=== PATIENT | male | born 1950 | race Caucasian/White ===

== ENCOUNTER 2020-06-13 14:46 | Outpatient (CLI) | payer MEDICARE, SELFPAY ==
--- NOTE | ~2020-06-13 | US_ITS ---
EXAMINATION: US venous doppler LE RT DATE: 06/13/2020 15:12 INDICATION: Acute deep vein thrombosis of proximal vein of right lower limb. TECHNIQUE: Grayscale ultrasound images without and with compression and Doppler ultrasound images of the right lower extremity veins were obtained. COMPARISON: None. FINDINGS: The visualized portions of right common femoral vein, profunda (deep) femoral vein, femoral vein, pop liteal vein, peroneal veins, posterior tibial veins, and greater saphenous vein outflow are patent. IMPRESSION: 1. No deep venous thrombosis. Reviewed, dictated and finalized at location A. [facility]
== END 2020-06-13 14:47 | disposition home or self-care (01) ==
PROVIDERS: PCP Internal Medicine; Visit Provider Internal Medicine Hematology & Oncology
DX: I82.4Y1 Acute embolism and thrombosis of unspecified deep veins of right proximal lower extremity (principal)
CPT/HCPCS: 93971

== ENCOUNTER 2020-06-18 13:32 | Outpatient (CLI) | payer MEDICARE, SELFPAY ==
[2020-06-20 21:04] LABS: Antithrombin III Activity 91 % normal (80-135)
[2020-06-21 12:16] LABS: Homocysteine 22.8 umol/L (<11.4)
[2020-06-21 20:14] LABS: Lupus dRVVT 1:1 Mix Interpreta Not Indicated; Lupus dRVVT Screen 44 sec (<=45); PTT-LA Screen 31 sec (<=40)
== END 2020-06-18 13:33 | disposition home or self-care (01) ==
LOC: ANHLAB 13:34
PROVIDERS: PCP Internal Medicine; Visit Provider Internal Medicine Hematology & Oncology
DX: I82.4Y1 Acute embolism and thrombosis of unspecified deep veins of right proximal lower extremity (principal)
CPT/HCPCS: 36415; 81240; 81241; 83090; 85300; 85303; 85306; 85613; 85730; 86146

== ENCOUNTER 2020-11-11 09:41 | Outpatient (CLI) | payer MEDICARE, SELFPAY ==
[2020-11-14 21:32] LABS: Homocysteine 18.4 umol/L (<11.4)
== END 2020-11-11 09:42 | disposition home or self-care (01) ==
PROVIDERS: PCP Internal Medicine; Visit Provider Internal Medicine Hematology & Oncology
DX: I82.4Y1 Acute embolism and thrombosis of unspecified deep veins of right proximal lower extremity (principal)
CPT/HCPCS: 36415; 83090

== ENCOUNTER 2021-02-17 09:59 | Outpatient (CLI) | payer MEDICARE, SELFPAY ==
[2021-02-19 20:29] LABS: Homocysteine 19.5 umol/L (<11.4)
== END 2021-02-17 10:00 | disposition home or self-care (01) ==
LOC: ANHLAB 10:01
PROVIDERS: PCP Internal Medicine; Visit Provider Internal Medicine Hematology & Oncology
DX: I82.4Y1 Acute embolism and thrombosis of unspecified deep veins of right proximal lower extremity (principal)
CPT/HCPCS: 36415; 83090

== ENCOUNTER 2021-06-09 08:32 | Outpatient (CLI) | payer MEDICARE, SELFPAY ==
[2021-06-11 14:57] LABS: Homocysteine 14.4 umol/L (<11.4)
== END 2021-06-09 08:33 | disposition home or self-care (01) ==
LOC: ANHLAB 08:33
PROVIDERS: PCP Internal Medicine; Visit Provider Internal Medicine Hematology & Oncology
DX: I82.4Y1 Acute embolism and thrombosis of unspecified deep veins of right proximal lower extremity (principal)
CPT/HCPCS: 36415; 83090

== ENCOUNTER 2021-12-08 08:54 | Outpatient (CLI) | payer MEDICARE, SELFPAY ==
[2021-12-11 21:34] LABS: Homocysteine 13.9 umol/L (<11.4)
== END 2021-12-08 08:55 | disposition home or self-care (01) ==
LOC: ANHLAB 08:56
PROVIDERS: PCP Internal Medicine; Visit Provider Internal Medicine Hematology & Oncology
DX: I82.4Y1 Acute embolism and thrombosis of unspecified deep veins of right proximal lower extremity (principal)
CPT/HCPCS: 36415; 83090

== ENCOUNTER 2022-06-22 09:25 | Outpatient (CLI) | payer MEDICARE, SELFPAY ==
[2022-06-25 15:39] LABS: Homocysteine 13.8 umol/L (<11.4)
== END 2022-06-22 09:26 | disposition home or self-care (01) ==
LOC: ANHLAB 09:27
PROVIDERS: PCP Internal Medicine; Visit Provider Internal Medicine Hematology & Oncology
DX: I82.4Y1 Acute embolism and thrombosis of unspecified deep veins of right proximal lower extremity (principal)
CPT/HCPCS: 36415; 83090

== ENCOUNTER 2022-12-21 08:46 | Outpatient (CLI) | payer MEDICARE, SELFPAY ==
[2022-12-21 09:53] LABS: Basophils Percent Auto 0.6 % (0.2-1.2); Eosinophils Absolute Auto 0.1 K/mm3 (0-0.3); Eosinophils Percent Auto 2.1 % (0-4.4); Hematocrit 47.3 % (42.0-52.0); Hemoglobin 15.6 g/dL (14.0-18.0); Immature Granulocyte Absolute 0.01 K/mm3 (0.00-0.031); Immature Granulocyte Percent A 0.2 % (0-0.5); Lymphocytes Absolute Auto 1.97 K/mm3 (0.9-3.2); Lymphocytes Percent Auto 29.7 % (18.3-44.2); Mean Platelet Volume 11.3 fl (7.4-10.4); Monocytes Absolute Auto 0.6 K/mm3 (0.1-0.6); Monocytes Percent Auto 9.2 % (2.6-8.5); Neutrophils Absolute Auto 3.9 K/mm3 (1.3-6.7); Neutrophils Percent Auto 58.2 % (45.5-73.1); Platelet Count Result 178 k/mm3 (150-375); Red Blood Count 4.73 M/mm3 (4.6-6.20); Red Cell Distribution Width 13.1 % (11.5-14.5); White Blood Count 6.6 K/mm3 (4.5-10.0)
[2022-12-25 05:35] LABS: Homocysteine 17.6 umol/L (<11.4)
== END 2022-12-21 08:47 | disposition home or self-care (01) ==
LOC: ANHLAB 08:48
PROVIDERS: PCP Internal Medicine; Visit Provider Internal Medicine Hematology & Oncology
DX: I82.4Y1 Acute embolism and thrombosis of unspecified deep veins of right proximal lower extremity (principal)
CPT/HCPCS: 36415; 83090; 85025

== ENCOUNTER 2023-12-27 09:41 | Outpatient (CLI) | payer MEDICARE, SELFPAY ==
[2023-12-27 09:56] LABS: Basophils Absolute Auto 0.1 K/mm3 (0.0-0.1); Eosinophils Absolute Auto 0.2 K/mm3 (0-0.3); Eosinophils Percent Auto 3.3 % (0-4.4); Hematocrit 45.7 % (42.0-52.0); Immature Granulocyte Absolute 0.02 K/mm3 (0.00-0.031); Immature Granulocyte Percent A 0.4 % (0-0.5); Lymphocytes Absolute Auto 1.73 K/mm3 (0.9-3.2); Lymphocytes Percent Auto 35.2 % (18.3-44.2); Mean Corpuscular HGB Conc 32.8 g/dl (32-36); Mean Corpuscular Hemoglobin 33.1 pg (26-34); Mean Corpuscular Volume 100.9 fl (80-100); Mean Platelet Volume 11.6 fl (7.4-10.4); Monocytes Absolute Auto 0.5 K/mm3 (0.1-0.6); Neutrophils Absolute Auto 2.4 K/mm3 (1.3-6.7); Neutrophils Percent Auto 49.1 % (45.5-73.1); Platelet Count Result 166 k/mm3 (150-375); Red Blood Count 4.53 M/mm3 (4.6-6.20); Red Cell Distribution Width 12.7 % (11.5-14.5); White Blood Count 4.9 K/mm3 (4.5-10.0)
[2023-12-27 10:37] LABS: Alanine Aminotransferase 26 U/L (6-50); Albumin Level 4.5 g/dL (3.5-5.1); Alkaline Phosphatase 70 U/L (38-126); Anion Gap 8 mmol/L (4-12); Aspartate Amino Transferase 31 U/L (17-59); Bilirubin,Total 0.5 mg/dL (0.2-1.3); Blood Urea Nitrogen 15 mg/dL (9-20); Calcium 9.1 mg/dL (8.4-10.2); Carbon Dioxide 30 mmol/L (22-30); Chloride 100 mmol/L (98-107); Estimated Glomerular Filt Rate > 60; Glucose 100 mg/dL (65-110); Potassium 4.7 mmol/L (3.4-5.0); Sodium 138 mmol/L (137-145)
[2023-12-29 12:38] LABS: Homocysteine 16.9 umol/L (<11.4)
== END 2023-12-27 09:42 | disposition home or self-care (01) ==
LOC: ANHLAB 09:43
PROVIDERS: PCP Internal Medicine; Visit Provider Internal Medicine Hematology & Oncology
DX: I82.4Y1 Acute embolism and thrombosis of unspecified deep veins of right proximal lower extremity (principal)
CPT/HCPCS: 36415; 80053; 83090; 85025

== ENCOUNTER 2024-12-25 09:24 | Outpatient (CLI) | payer MEDICARE, SELFPAY ==
--- OUTSIDE RECORDS SUMMARY | 2009-08-30 05:00 | XMS_ITS | Continuity of Care Document ---
Author Organization [facility] Address [address] [place] [address] Phone Care Team Providers Care Pharmacy Student Name Role Phone Pimentel OD, Darius Unavailable Unavailable Procedures Procedure Date Eye Exam, New Patient Refraction Advance Directives Directive Yes / No Effective Date File Name No Information Encounters Encounter Description Practice Location Reason(s) For Visit Diagnoses Date Provider Providers Copied on Encounter [facility], [address], [place], [place], [id number], [place] tel:[phone] [facility] No Information 2-201 0 Pimentel OD Darius. [address] , [address], [place], [address], [place]. tel:[phone] Family History Family Member Type Diagnosis Age At Onset No Information Payers Payer name Insurance type Covered democrat ID Authoriza timyriam(s) [employer] Plan CI [id number] Social History Type Description Quantity Date Captured Comments Sex Male Smoking Status No Information Chief Complaint And Reason For Visit No Information Reason For Referral Reason For Referral No Information History Of Present Illness Encounter Date Complaint History Of Prese nt Illness No Information Functional Status Date Functional Assessmen t No Information Instructions Date Instruction Additional Infor mation No Information Assessments Type Assessment Date No Information Patient Care Teams Name Effective Dates (start - stop) Status Members No Information
--- OUTSIDE RECORDS SUMMARY | 2024-10-23 19:00 | XMS_ITS | Continuity of Care Document ---
Author Organization [facility] Address [address] [place] [phone] Phone Care Team Providers Care Laundrette Owner Name Role Phone Jessie QUEEN, FACC, David Unavailable Unavail able Procedures Procedure Date EXTRACRANIAL STUDY Advance Directives Directive Yes / No Effective Date File Name No Information Encounters Encounter Description Practice Location Reason(s) For Visit Diagnoses Date Provider Providers Copied on Encounter [facility], [address] [place] [address], [id number], tel:[phone] [facility] No Information Jessie Heranndez. [address] [place] [address], [id number], . tel:[phone] Referring Provider: David Jay, [address] [place] [address], [id number]. tel:[phone] Family History Family Member Type Diagnosis Age At Onset No Information Payers Payer name Insurance type Covered republican ID Authoriza tion(s) [employer] MEDICARE [place] PPO MB [id number] Social History Type Description Quantity Date Captured [...]
[2024-12-25 09:36] LABS: Hematocrit 46.9 % (42.0-52.0); Hemoglobin 15.3 g/dL (14.0-18.0); Immature Granulocyte Percent A 0.4 % (0-0.5); Lymphocytes Absolute Auto 1.93 K/mm3 (0.9-3.2); Mean Corpuscular HGB Conc 32.6 g/dl (32-36); Mean Corpuscular Hemoglobin 33.0 pg (26-34); Mean Corpuscular Volume 101.1 fl (80-100); Nucleated Red Blood Cells Absolute Auto 0.000 K/mm3 (0.0-0.012); Nucleated Red Blood Cells Perc 0.0 % (0.0-0.2); Platelet Count Result 174 k/mm3 (150-375); Red Blood Count 4.64 M/mm3 (4.6-6.20); White Blood Count 5.3 K/mm3 (4.5-10.0)
[2024-12-25 10:14] LABS: Alanine Aminotransferase 25 U/L (6-50); Albumin Level 4.3 g/dL (3.5-5.1); Alkaline Phosphatase 78 U/L (38-126); Anion Gap 8 mmol/L (4-12); Aspartate Amino Transferase 41 U/L (17-59); Bilirubin,Total 0.8 mg/dL (0.2-1.3); Blood Urea Nitrogen 18 mg/dL (9-20); Calcium 8.8 mg/dL (8.4-10.2); Carbon Dioxide 28 mmol/L (22-30); Chloride 103 mmol/L (98-107); Estimated Glomerular Filt Rate > 60; Glucose 100 mg/dL (65-110); Potassium 4.5 mmol/L (3.4-5.0); Sodium 139 mmol/L (137-145); Total Protein 7.7 g/dL (6.3-8.2)
--- OUTSIDE RECORDS SUMMARY | 2024-12-25 10:43 | XMS_ITS | Clinical Summary ---
Author Organization [facility] Address [address] [place] [address] Care Team Providers Care Spray Gun Striper Name Role Phone Remy Denny MD Primary Care Provider [phone] Allergies Active Allergy Reactions Criticality Noted Date Comments Ajay Inhibitors Other (See Comments) 02/25/2021 Arb-Angiotensin Receptor Antagonist Other (See Comments) 02/25/2021 Medications sildenafiL (VIAGRA) 100 mg tablet TAKE 1 TABLET BY MOUTH AN HOUR BEFORE SEXUAL ENCOUNTER 1 Active quinapriL (ACCUPRIL) 10 mg tablet TAKE 1 TABLET BY MOUTH EVERY DAY 1 Active FOLIC ACID ORAL Take by mouth. Active Eliquis 5 mg tablet Take 1 Tablet (5 mg) by mouth 2 times daily. 60 Tablet 5 2 Active lisinopriL (PRINIVIL) 10 mg tablet Take 10 mg by mouth daily. Active Active Problems Problem Noted Date Diagnosed Date Acute deep vein thrombosis ( DVT) of proximal vein of right lower extremity 06/11/2020 Encounters Date Type Department Care Team Description 12/11/2024 External Device Data STL ABSTRACTION Provider, Abstract from Last 3 Months Family History Relation Name Status Comments Brother Alive Daughter Alive Father Mother Sister Alive Son Alive Social History Tobacco Use Types Packs/Day Years Used Date Smoking Tobacco: Former Cigarettes 1 20 0 01/02/1954 - 01/02/1974 Smokeless Tobacco: Never Tobacco Cessation:Counseling Given: Not Answered Comments:quit over 45 yrs ago Alcohol Use Standard Drinks/Week Comments Yes 0 (1 standard drink = 0.6 oz pur e alcohol) mostly beer but sometimes wine Feeling Safe Answer Date Recorded Within the last year, have y ou been afraid of your partner or ex-partner? No 06/11/2020 Within the last year, have y ou been humiliated or emotionally abused in other ways by your partner or ex-partner? No Within the last year, have y ou been kicked, hit, slapped, or otherwise physically hurt by your partner or ex-partner? No 06/11/2020 Within the last year, have y ou been raped or forced to have any kind of sexual activity by your partner or ex-partner? No 06/11/2020 Social Connections Answer Date Recorded In a typical week, how many times do you talk on the phone with family, friends, or neighbors? More than three times a week 06/11/2020 How often do you get togethe r with friends or relatives? More than three times a week 06/11/2020 Attends [employer] Not on file 06/11 Do you belong to any clubs o r organizations such as yarsanism groups, unions, fraternal or athletic groups, or school groups? Yes 06/11/2020 How often do you attend meet ings of the clubs or organizations you belong to? More than 4 times per year 06/11/2020 Marital Status Not on file 06/11/2020 Financial Resource Strain Answer Date R ecorded How hard is it for you to pa y for the very basics like food, housing, medical care, and heating? Not hard at all 06/11/2020 Food Insecurity Answer Date Recorded Within the past 12 months, y ou worried that your food would run out before you got the money to buy more. Never true 06/12/19 21 Within the past 12 months, t he food you bought just didn't last and you didn't have money to get more. Never true 06/11/2020 Transportation Needs Answer Date Record ed In the past 12 months, has l ack of transportation kept you from medical appointments or from getting medications? No 06/2020 In the past 12 months, has l ack of transportation kept you from meetings, work, or from getting things needed for daily living? 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 Gender Identity Not on file Sexual Orientation Not on file Last Filed Vital Signs Vital Sign Reading Time Taken Comments Blood Pressure 138/80 01/03/2024 9:28 AM CDT Pulse 73 01/03/2024 9:24 AM CDT Temperature 36.6 C (97.8 F) 01/03/2024 9:24 AM CDT Respiratory Rate 16 01/03/2024 9:24 AM CDT Oxygen Saturation 96% 01/03/2024 9:24 AM CDT Inhaled Oxygen Concentration - - Weight 106.1 kg (233 lb 12.8 oz) 01/03/2024 9:24 AM CDT Height 190.5 cm (6' 3) 06/17/2021 9:16 AM STUDENT FINANCIAL SERVICES COUNSELOR Body Mass Index 29.22 06/17/2021 9:16 AM STUDENT FINANCIAL SERVICES COUNSELOR Plan of Treatment Upcoming Encounters Date Type Department Care Team (Late st Contact Info) Description 01/02/2025 10:15 AM CDT Office Visit [facility] [address] [facility] [address] [place] [address] Faustino Crowell MD [address] [facility] [address] [place] [address] Health Maintenance Due Date Last Done Comments DTAP/TDAP/TD VACCINES (1 - Tdap) 1970 COLORECTAL SCREENING 01/22/1996 Colorectal Cancer Screening 01/22/1996 FIT-DNA Q 3 years 01/22/1996 FIT/FOBT Q 1 year 01/22/1996 Flex Sig/CT Colonography Q 5 years 01/22/1996 PNEUMOCOCCAL VACCINE 50+ YEA RS (1 of 1 - PCV) 2001 ZOSTER VACCINE (1 of 2) 2001 Abdominal Aortic Aneurysm (AAA) Screening 01/22/2016 Medicare Advantage ([place]) Prev entative Visit/Annual Wellness Visit 04/11/2024 INFLUENZA VACCINE (#1) 2024 02/23/2021, 2012 RSV VACCINE (60+ or ) (1 - 1-dose 75+ series) 2026 Insurance AETNA PPO MCR AET[employer] PPO MCR Care Teams Spray Gun Striper Relationship Specialty Start Date End Date Remy Denny MD [address] [facility] [address] [place] [id number] PCP - General Internal Medicine 06/11/20
== END 2024-12-25 09:25 | disposition home or self-care (01) ==
LOC: ANHLAB 09:25
PROVIDERS: PCP Internal Medicine; Visit Provider Internal Medicine Hematology & Oncology
DX: I82.4Y1 Acute embolism and thrombosis of unspecified deep veins of right proximal lower extremity (principal)
CPT/HCPCS: 36415; 80053; 83090; 85025